=== PATIENT | female | born 1995 | race Caucasian/White ===

== ENCOUNTER 2021-09-08 03:56 | Emergency (ER) | payer MEDICAID, SELFPAY ==
[2021-09-08 04:04] VITALS: BP 126/78; PULSE 90; RESP 16; TEMP 36.1; O2SAT 99
[2021-09-08] MEDS: diphenhydrAMINE 25 MG CAPSULE 50 MG PO (05:24)
--- NOTE | 2021-09-08 21:33 | ED.SKABFB ---
HPI - Skin/Abscess/Foreign Bdy General Chief complaint: Skin/Abscess/Foreign Body Stated complaint: Skin Rash Source: patient and RN notes reviewed History of Present Illness HPI narrative: 26-year-old woman presents with concern of rash that started early last week. Maybe Began in inner thighs or on her in her lower arms. Has been patchy and terribly itchy. She thinks maybe it started as a heat rash. 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 At home has no AC. No new exposures. No new medications. Has tried treatment with Vaseline calamine lotion. really all over she is feeling this. No sense of difficulty breathing or swallowing. No nausea. No abdominal cramping. no diarrhea. No chest pain. No shortness of breath. Related Data Home Medications Medication Instructions Recorded Confirmed bupropion HCl 300 mg 24 hr tablet, mg PO 09/08/21 extended release desogestrel 0.15 mg-ethinyl tab 09/08/21 estradiol 0.03 mg tablet (Apri) sertraline 100 mg tablet mg 09/08/21 trazodone 50 mg tablet mg 09/08/21 Review of Systems Status of ROS: Reports: 6 or more systems reviewed and unremarkable except as noted in History and below [facility] Medical History Acid reflux Anxiety Depression Social History Smoking Status: Smoker, status unknown Do you use any of these nicotine containing products: None Non-prescribed substance use: denies use Exam Narrative: Exam Narrative: pleasant. Clearly uncomfortable. Frequently scratching at her arms in particular. speaking easily. Cranial nerves 2-12 intact Skin is warm and dry. Diffuse areas of erythema scattered over good portions of her body particularly the extremities are also urticarial eruptions. Oropharynx is unremarkable. Lungs are clear cardiovascular a little elevated rate but regular rhythm, no MR G Abdomen is overweight soft nontender. Const: Vital Signs, click to edit/add: Vital Signs - 24 hr 09/08/21 04:04 Temperature 97 F L Pulse Rate [Right Pulse Oximeter] 90 Respiratory Rate 16 Blood Pressure [Ri ght Upper Arm] 126/78 Pulse Oximetry 99 Documenting provider has reviewed patient's vital signs: yes Course Course Hospital Course: is okay from a vitals standpoint here. Given time of night and that she does not have available diphenhydramine. Is given a 50 mg dose here to take once got home. Vital Signs Vital signs: Initial Vital Signs Temperature 97 F L 09/08/21 04:04 Temperature Source Temporal Artery Scan 09/08/21 04:04 Pulse Rate 90 09/08/21 04:04 Respiratory Rate 16 09/08/21 04:04 Blood Pressure 126/78 09/08/21 04:04 Blood Pressure Mean 94 09/08/21 04:04 Blood Pressure Position Supine 09/08/21 04:04 Pulse Oximetry 99 09/08/21 04:04 Oxygen Delivery Method 09/08/21 04:04 Vital Signs Temperature 97 F L 09/08/21 04:04 Pulse Rate 90 09/08/21 04:04 Respiratory Rate 16 09/08/21 04:04 Blood Pressure 126/78 09/08/21 04:04 Pulse Oximetry 99 09/08/21 04:04 Temperature 97 F L 09/08/21 04:04 Pulse Rate 90 09/08/21 04:04 Respiratory Rate 16 09/08/21 04:04 Blood Pressure 126/78 09/08/21 04:04 Pulse Oximetry 99 09/08/21 04:04 MDM - Skin/Abscess/Foreign Bdy MDM Narrative Medical decision making narrative: Urticarial rash of unclear etiology. Does not appear to be affecting airway oral prednisone prescribed from [facility]. Work note was also written. See discharge instructions Discharge Plan Discharge Clinical Impression: Urticaria Patient Disposition: Home, Self-Care Condition: Stable Additional Instructions: Hydrate. Can take diphenhydramine 25-50 mg per dose for breakthrough itch. Take prednisone as 40 mg now and 20 mg this early afternoon. Then go to 20 mg 2 times daily for 3 days. Yes I do think that higher heat exposure would exacerbate when you have got going on. Prescriptions: No Action desogestrel-ethinyl estradiol [Apri] 0.15-0.03 mg tablet 0RF Label Comments: TAKE 1 TABLET BY MOUTH EVERY DAY trazodone 50 mg tablet 0RF Label Comments: TAKE 1-2 TABLETS (50-100 MG) BY MOUTH AT BEDTIME IF NEEDED FOR SLEEP. sertraline 100 mg tablet 0RF Label Comments: TAKE 2 TABLETS BY MOUTH EVERY MORNING bupropion HCl 300 mg tablet extended release 24 hr PO 0RF Label Comments: TAKE 1 TABLET BY MOUTH EVERY DAY Follow Up/Referrals: Italia Bryant DO [Primary Care Provider] - Stand Alone Forms: [employer] Info Instructions
== END 2021-09-08 05:35 | disposition home or self-care (01) ==
PROVIDERS: Emergency Provider Family Medicine; PCP Family Medicine
DX: L50.9 Urticaria, unspecified (principal)
CPT/HCPCS: 99282; 99284; A9270

== ENCOUNTER 2023-03-02 23:27 | Emergency (ER) | payer MEDICAID, SELFPAY ==
[2023-03-02 23:39] VITALS: BP 123/80; PULSE 93; RESP 16; TEMP 36.6; O2SAT 96; BMI 35.5
--- NOTE | 2023-03-02 23:50 | ED_ITS ---
HPI - General Adult General Chief complaint: Cough Stated complaint: congestion, sore throat Time Seen by Provider: 03/02/23 23:49 Source: patient Mode of arrival: ambulatory Limitations: no limitations History of Present Illness HPI narrative: 27-year-old female presenting today with concerns about COVID-19. Patient has been ill for 6 days. She has been having congestion, runny nose and mild cough. No fevers or chills. Normal appetite. Sleeping well at night. Tested for COVID-19 at home and it was positive. Patient presents to the ER for confirmation. Related Data Home Medications Medication Instructions Recorded Confirmed bupropion HCl 300 mg 24 hr tablet, mg PO 09/08/21 extended release desogestrel 0.15 mg-ethinyl tab 09/08/21 estradiol 0.03 mg tablet (Apri) sertraline 100 mg tablet mg 09/08/21 trazodone 50 mg tablet mg 09/08/21 omeprazole 20 mg capsule,delayed 1 PO QAM 03/02/23 release Allergies Allergy/AdvReac Type Severity Reaction Status Date / Time No Known Drug Allergies Allergy Verified 03/02/23 23:38 Review of Systems Status of ROS: Reports: 10 or more systems reviewed and unremarkable except as noted in History and below [facility] Medical History Acid reflux ?K21.9 - Gastro-esophageal reflux disease without esophagitis (ICD-10) Anxiety ?F41.9 - Anxiety disorder, unspecified (ICD-10) Depression ?F32.A - Depression, unspecified (ICD-10) Social History Smoking Status: Smoker, status unknown Do you use any of these nicotine containing products: None Non-prescribed substance use: denies use Exam Narrative: Exam Narrative: Overweight, well-developed patient in no acute distress. Alert and oriented. Answers questions appropriately. Mood and affect are appropriate. Thoughts are goal oriented and rational. No tangential or magical thinking noted. Patient speaks in full sentences without needing to catch her breath. Patient does sound congested. HEENT: Normocephalic atraumatic. Pupils are equally round reactive to light. Extraocular muscles are intact. Conjunctivae are moist without any icterus noted. Moist mucous membranes. Cardiovascular: Heart is regular rate. Lungs: Clear to auscultation bilaterally. Skin: Well perfused without any obvious rashes. Const: Vital Signs, click to edit/add: Vital Signs - 24 hr 03/02/23 23:39 Temperature 97.9 F Pulse Rate [Pulse Oximeter] 93 Respiratory Rate 16 Blood Pressure [Ri ght Upper Arm] 123/80 Pulse Oximetry 96 Course Vital Signs Vital signs: Initial Vital Signs Temperature 97.9 F 03/02/23 23:39 Temperature Source Temporal Artery Scan 03/02/23 23:39 Pulse Rate 93 03/02/23 23:39 Respiratory Rate 16 03/02/23 23:39 Blood Pressure 123/80 03/02/23 23:39 Blood Pressure Mean 94 03/02/23 23:39 Blood Pressure Position Sitting 03/02/23 23:39 Pulse Oximetry 96 03/02/23 23:39 Vital Signs Temperature 97.9 F 03/02/23 23:39 Pulse Rate 93 03/02/23 23:39 Respiratory Rate 16 03/02/23 23:39 Blood Pressure 123/80 03/02/23 23:39 Pulse Oximetry 96 03/02/23 23:39 Temperature 97.9 F 03/02/23 23:39 Pulse Rate 93 03/02/23 23:39 Respiratory Rate 16 03/02/23 23:39 Blood Pressure 123/80 03/02/23 23:39 Pulse Oximetry 96 03/02/23 23:39 Medical Decision Making MDM Narrative Medical decision making narrative: 27-year-old female COVID-19. We discussed that home tests, when positive, are generally accurate. After having this discussion patient no longer wished to have a COVID-19 test done in the ED today. Did give her a work note as requested. Discussed symptomatic treatment. Given that she is on day 6 of her illness I do not recommend packs of it at this time. Patient understood. Discharge Plan Discharge Clinical Impression: COVID-19 Patient Disposition: Home, Self-Care Condition: Stable Additional Instructions: Since you still have symptoms, you should stay out of work for a full 10 days. This means you can return to work this Thursday. Rest as much as you need to, stay well-hydrated and eat nutritious meals. Prescriptions: No Action desogestrel-ethinyl estradiol [Apri] 0.15-0.03 mg tablet Patient Comments: TAKE 1 TABLET BY MOUTH EVERY DAY trazodone 50 mg tablet Patient Comments: TAKE 1-2 TABLETS (50-100 MG) BY MOUTH AT BEDTIME IF NEEDED FOR SLEEP. sertraline 100 mg tablet Patient Comments: TAKE 2 TABLETS BY MOUTH EVERY MORNING bupropion HCl 300 mg tablet extended release 24 hr PO Patient Comments: TAKE 1 TABLET BY MOUTH EVERY DAY omeprazole 20 mg capsule,delayed release(DR/EC) 1 PO QAM Follow Up/Referrals: Italia Bryant DO [Primary Care Provider] - Stand Alone [facility]
== END 2023-03-03 00:05 | disposition home or self-care (01) ==
LOC: ED 23:54
PROVIDERS: Emergency Provider Family Medicine; PCP Family Medicine
DX: U07.1 COVID-19 (principal)
CPT/HCPCS: 87631; 87651; 99282; 99283

== ENCOUNTER 2023-09-10 14:30 | Outpatient (RCR) | payer MEDICAID, OTHER, SELFPAY | END 2024-01-08 23:59 | disposition home or self-care (01) | PROVIDERS: PCP Family Medicine; Visit Provider Student in an Organized Health Care Education/Training Program | DX: M54.9 Dorsalgia, unspecified (principal); Z51.89 Encounter for other specified aftercare | CPT/HCPCS: 97110; 97140; 97162 ==

== ENCOUNTER 2024-08-09 15:05 | Emergency (ER) | payer OTHER, MEDICAID, SELFPAY ==
--- OUTSIDE RECORDS SUMMARY | 2024-08-09 15:06 | XMS_ITS | Clinical Summary ---
[facility] Address [address], [place] [address] Care Team Providers Care Fishing Tool Operator Name Role Phone Unassigned, Provider Primary Care Provider Unava ilable Source Comments You are receiving this document as you are listed as the primary care provider,follow-up provider, or the patient has been referred to you for consultation.This is in compliance with the Medicare andMedicaid EHR Incentive Program,which states Providers who transition their patient to another setting of careor provider of care or refers their patient to another provider of care shouldprovide summary care record for each transition of care or referral. [facility] Allergies No known active allergies Medications APRI 0.15-30 MG-MCG tablet 05/19/2019 Activ e sertraline (ZOLOFT) 100 MG tablet Take 100 mg by mouth daily. 04/27/2019 Active Social History Tobacco Use Types Packs/Day Years Used Date Smoking Tobacco: Never Comments No Sex and Gender Information Value Date Recorded Sex Assigned at Not on file Legal Sex Female 12:00 PM CDT Gender Identity Not on file Sexual Orientation Not on file Last Filed Vital Signs Vital Sign Reading Time Taken Comments Blood Pressure 114/78 11/17/2015 2:40 PM CDT Pulse 111 11/17/2015 2:40 PM CDT Temperature 37.2 C (98.9 F) 11/17/2015 2:40 PM CDT Respiratory Rate 18 11/17/2015 2:40 PM CDT Oxygen Saturation 96% 11/17/2015 2:40 PM CDT Inhaled Oxygen Concentration - - Weight 71.7 kg (158 lb) 11/17/2015 2:40 PM CDT Height - - Body Mass Index - - Plan of Treatment Health Maintenance Due Date Last Done Comments Cervical Cancer Screening Due 1993 Hep C Screening (Preventive Services) 1993 HIV Screening (Preventive Services) 2009 Adult Preventive Visit 05/24/2011 HepB Vaccine (1) 2012 COVID-19 Vaccine (1 - 2023-2 5 season) 2023 Influenza Vaccine (Season Ended) 2024 DTaP/Tdap/Td Vaccine (3 - Tdap) 03/12/2025 03/12/2015, 10/09/2005 Zoster/Shingles Vaccine (1 o f 2) 05/24/2043 MCV4 Vaccine Aged Out 03/12/2015 No longer eligi ble based on patient's age to complete this topic HPV Vaccine Aged Out No longer eligi ble based on patient's age to complete this topic HepA Vaccine Aged Out No longer eligi ble based on patient's age to complete this topic Hib Vaccine Aged Out No longer eligi ble based on patient's age to complete this topic IPV (Polio) Vaccine Aged Out No longe r eligible based on patient's age to complete this topic Meningococcal B Vaccine Aged Out No l onger eligible based on patient's age to complete this topic Pneumococcal Vaccine Aged Out No long er eligible based on patient's age to complete this topic Insurance [facility] OUT OF STATE Care Teams Fishing Tool Operator Relationship Specialty Start Date End Date Unassigned, Provider [address] [place] [address] PCP - General 01/01/00
--- OUTSIDE RECORDS SUMMARY | 2024-08-09 15:06 | XMS_ITS | Clinical Summary ---
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 Gender Identity Not on file Sexual Orientation Not on file Last Filed Vital Signs Vital Sign Reading Time Taken Comments Blood Pressure 117/89 10/05/2018 12:39 AM CDT Pulse 71 10/05/2018 12:39 AM CDT Temperature 36.8 C (98.2 F) 10/04/2018 11:01 PM CDT Respiratory Rate 18 10/04/2018 11:01 PM CDT Oxygen Saturation 99% 10/05/2018 12:40 AM CDT Inhaled Oxygen Concentration - - Weight 84.4 kg (186 lb) 10/04/2018 11:01 PM CDT Height - - Body Mass Index - - Plan of Treatment Not on file Insurance [employer] Care Teams Children'S Attendant Relationship Specialty Start Date End Date [facility], [facility] [place] [address] [place], [place] [id number] PCP - General 10/05/18
--- OUTSIDE RECORDS SUMMARY | 2024-08-09 15:07 | XMS_ITS | Clinical Summary ---
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 30 Tablet 07/26/19 22 Active omeprazole 20 mg tabletIndications :Dyspepsia Take one tablet daily 30 minutes prior to breakfast. 90 Tablet 3 03/10/19 23 Active albuterol HFA (Ventolin HFA) 90 mcg/actuation inhalerIndication s:Subacute cough Inhale 1 Puff by mouth 4 times daily if needed for Shortness of Breath 1st choice. 1 Each 1 03/10/19 24 Active naproxen (NAPROSYN) 500 mg tabletIndications :Back pain without radiation Take 1 Tablet (500 mg) by mouth two times daily. 28 Tablet 06/22/19 24 Active cetirizine (ZYRTEC) 10 mg tabletIndications :Allergic rhinitis, unspecified seasonality, unspecified trigger Take 1 Tablet (10 mg) by mouth once daily. 90 Tablet 1 11/16/19 24 Active Metaxalone (Skelaxin) 800 mg tabletIndications :Muscle spasm of back Take 1 tablet at bedtime as needed for muscle spasm 30 Tablet 04/13/19 25 Active methylPREDNISolon e (Medrol, Aston,) 4 mg tabletIndications :Degeneration of intervertebral disc of lumbar region, unspecified whether pain present,Chronic midline low back pain without sciatica Take by mouth as instructed per packaging. 21 Tablet 04/13/19 25 Active buPROPion 100 mg Sustained-Release tabletIndications :Depression, major, single episode, moderate (HC) Take 1 Tablet (100 mg) by mouth two times daily. 180 Tablet 1 06/18/19 25 Active escitalopram oxalate 20 mg tabletIndications :Depression, major, single episode, moderate (HC),Generalized anxiety disorder Take 1 Tablet (20 mg) by mouth once daily in the morning. 100 Tablet 1 06/18/19 25 Active traZODone 100 mg tabletIndications :Insomnia, unspecified type Take 1 Tablet (100 mg) by mouth at bedtime if needed for Sleep. 100 Tablet 1 06/18/19 25 Active cholecalciferol (Vitamin D3) (Vitamin D-3) 5,000 unit tab tabletIndications :Vitamin D deficiency Take 1 Tablet (5,000 units) by mouth once daily. 90 Tablet 1 06/18/19 25 Active cyanocobalamin (Vitamin B-12) 1,000 mcg tabletIndications :Vitamin B12 deficiency Take 1 Tablet (1,000 mcg) by mouth once daily. 90 Tablet 1 06/18/19 25 Active desogestrel-ethin yl estradiol 0.15-30 mg-mcg (Apri) tabletIndications : control counseling TAKE 1 TABLET BY MOUTH EVERY DAY 84 Tablet 2 08/02/19 25 Active desogestrel-ethin yl estradiol 0.15-30 mg-mcg (Apri) tabletIndications : control counseling Take 1 Tablet by mouth once daily. 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 05/29/2021 Insomnia 05/29/2021 Myopia of both eyes 04/03/2016 Borderline personality disorder 01/07/2016 Anxiety state, unspecified 03/02/2013 Irritable bowel 02/17/2013 Sleep disorder 02/03/2013 Weight loss 02/03/2013 Headache 02/03/2013 ENURESIS, NOCTURNAL 05/20/1999 DISORDER, 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 Resolved Problems Problem Noted Date Diagnosed Date Resolved Date Depression with anxiety 02/03/201303/2013 Encounters Date Type Department Care Team Description 08/09/2024 [place] T[place] [facility] [address] [place] [address] Italia Bryant DO Head Injury 07/31/2024 Refill [facility] [address] [place] [address] Betsey Yuan MD Refill Request (Apri) 06/17/2024 1:25 PM CDT Office [place] [facility] [address] [place] [address] Italia Bryant DO Medication Management (follow up - refills needed) 06/17/2024 Travel from Last 3 Months Immunizations Immunization Administration Dates Next Due DTP 05/26/1995, 4,1993,07/16 DTaP 10/09/2005,11/15/1997 HIB PRP-OMP (PedvaxHIB) 1993,1993, Hepatitis B (Peds) 01/07/1994,1993, 994 MENINGOCOCCAL VACCINE 2 VIAL 2MO-55YO (MENVEO) 03/12/2015 MMR 11/15/1997,09/29/1994 Oral Polio Vaccine 11/15/1997, 6,1993,07/16 Tdap 03/12/2015 Tuberculin (PPD) 03/12/2015 Family History Medical History Relation Name Comments Psychiatric illness Brother 2 undiagno sed Cancer Maternal Grandfather brain c ancer Cancer Paternal Grandmother lung ca ncer Relation Name Status Comments Brother 1 Alive Brother 2 Father Alive Maternal Grandfather Alive Maternal Grandmother Alive Mother Alive Paternal Grandmother lung ca ncer Social History Tobacco Use Types Packs/Day Years Used Date Smoking Tobacco: Never Smokeless Tobacco: Never Tobacco Cessation:Counseling Given: Yes Alcohol Use Standard Drinks/Week Comments Not Currently 0 (1 standard drink = 0.6 oz pur e alcohol) occasional PHQ-2 Answer Date Recorded PHQ-2 TOTAL SCORE 4 06/17/2024 Social Connections Answer Date Recorded Do you often feel lonely or isolated from those around you? 0 04/13/2024 Financial Resource Strain Answer Date R ecorded Difficulty of Paying Living Expenses 1 04/13/2024 Difficulty of Paying Living Expenses 2 04/13/2024 Food Insecurity Answer Date Recorded Do you worry your food will run out before you are able to buy more? 2 04/13/2024 Transportation Needs Answer Date Record ed Does lack of transportation keep you from medica l appointments? 1 04/13/2024 Does lack of transportation keep you from work, meetings or getting things that you need? 1 04/13/2024 Housing Stability Answer Date Recorded What is your housing situation today? 1 04/13/2024 Utilities Answer Date Recorded Do you have trouble paying f or utilities (for example, heat, electricity, water, phone)? 2 04/13/2024 Comments No Sex and Gender Information Value Date Recorded Sex Assigned at Not on file Legal Sex Female 5:26 AM TUG BOAT CAPTAIN Gender Identity Not on file Sexual Orientation Not on file Occupation Industry Job Start Date Job End Date Not on file Not on file Not on file Not on file Obstetrics History Last Filed Vital Signs Vital Sign Reading Time Taken Comments Blood Pressure 108/82 06/17/2024 1:34 PM CDT Pulse 104 06/17/2024 1:34 PM CDT Temperature 36.7 C (98.1 F) 06/26/2023 3:08 PM CDT Respiratory Rate 16 05/21/2015 11:1 5 AM CDT Oxygen Saturation 97% 06/17/2024 1:34 PM CDT Inhaled Oxygen Concentration - - Weight 115.1 kg (253 lb 12.8 oz) 06/17/2024 1:34 PM CDT Height 167.6 cm (5' 6) 04/13/2024 9:51 AM TUG BOAT CAPTAIN Body Mass Index 40.96 04/13/2024 9:51 AM TUG BOAT CAPTAIN Plan of Treatment Health Maintenance Due Date Last Done Comments COVID-19 vaccine series ( season) 2023 Pap test for age 21-65 06/25/2024 , 06/26/2023, 03/10/2022, Additional history exists Influenza Vaccine (Season Ended) 2024 Tetanus booster 03/12/2025 03/12/2015 BMI (ht and wt on same day) for age 18+ 04/13/2025 04/13/2024, 06/26/2023, 06/22/2023, Additional history exists Depression screening for age 12+ 06/17/2025 06/17/2024, 06/26/2023, 06/30/2022, Additional history exists Hepatitis B series for 19+ Completed 01/07, 1993, 1993 Tdap Completed 03/12/2015 HIV for age 15-65 Completed 03/10/2022, , 12/10/2011 Hepatitis C screening for age 18-79 Completed 03/10/2022, 08/30/2018 Pneumococcal series for age 6-49 Aged Out No longer eligible based on patient's age to complete this topic Procedures Procedure Name Priority Date/Time Associated Diagnosis Comments CONSTRUCTION LABORER THIN PREP PAP SCREEN IMAGED Routine 06/26/2023 3:30 PM CDT Cervical cancer screening LC HIV-1/O/2, 4TH GENERATION Routine 03/10/2022 1:53 PM TUG BOAT CAPTAIN Exposure to potentially hazardous body fluids LC HCV ANTIBODY RFX TO QUANT PCR Routine 03/10/2022 1:53 PM TUG BOAT CAPTAIN Exposure to potentially hazardous body fluids from Last 3 Months or Most Recently Relevant to Health Maintenance Results * (ABNORMAL) CONSTRUCTION LABORER THIN PREP PAP SCREEN IMAGED (06/26/2023 3:30 PM CDT) Case Report Gynecologic Cytology Report Case: [id number] Authorizing Provider: Betsey Yuan Collected: 06/26/2023 1530 MD Yue Ordering Location: [facility] Received: 06/26/2023 1633 Clinic First Screen: Troy Still Pathologist: Pura Tinoco MD Specimen: CONSTRUCTION LABORER ThinPrep Vial Screening, Cervical 07/08/2023 3:57 PM CDT [facility] INTERPRETATION/ RESULT ATYPICAL SQUAMOUS CELLS OF UNDETERMINED SIGNIFICANCE (ASCUS)(A) (none) 07/08/2023 3:57 PM CDT [facility] ENTR[facility] LABOR[facility]ORY at 1557 CDT SPECIMEN ADEQUACY Satisfactory for evaluation Endocervical component present 07/08/2023 3:57 PM CDT [facility] EN[facility] LAB[facility] HPV REQUEST HPV and PAP 07/08/2023 3:57 PM CDT [facility] Date of LMP 05/1707/08/2023 3:57 PM CDT [facility] Last Pap Date 03/10/22 07/08/2023 3:57 PM CDT [facility] Last Pap Result ASCUS 3:57 PM CDT [facility] Abnormal Pap or [place] Bx in last 5 years Yes 07/08/2023 3:57 PM CDT [facility] Menstrual Status Regular Periods 07/08/2023 3:57 PM CDT [facility] ENTR[facility] LAB[facility] [place] Bx Done Today No 07/08/2023 3:57 PM CDT [facility] Additional Information None given 07/08/2023 3:57 PM CDT [facility] Comment: Cytology is screened at [facility] - [address] [facility] [address] [address] and [facility] - [address] [place] [address], [place] [address] and [facility] - [address], [place] [address] Interpreted at [facility] - [address], [place] [address] Automated Review Successful 07/08/2023 3:57 PM CDT [facility] Comment:Specimen processed s uccessfully by automated athletic events scorer device, AnturisPrep Imaging System, [employer] ANCILLARY TESTING CONSTRUCTION LABORER HPV Ordered, Please see separate report 07/08/2023 3:57 PM CDT [facility] Note The pap test is a screening technique, not a diagnostic procedure. It is used primarily to screen for squamous cancers and precursor lesions. Published studies have shown that it is subject to both false negative and false positive results. The pap test should not be used as the sole means to diagnose or exclude pre-malignant and malignant lesions. 07/08/2023 3:57 PM CDT [facility] Other (Cervical) Non-Blood / Unknown 06/26/2023 3:30 PM CDT 06/26/2023 4:33 PM CDT Betsey Yuan MD PATHOLOGY/CYTOLOGY Final Result [facility] [address] [place] [address], [place] * LC HCV ANTIBODY RFX TO QUANT PCR (03/10/2022 1:53 PM TUG BOAT CAPTAIN) HCV Ab <0.1 0.0 - 0.9 s/co ratio 03/14/2022 4:07 AM TUG BOAT CAPTAIN [facility] Blood BLOOD SPECIMEN / Unknown Venipuncture / Unknown 03/10/2022 1:53 PM TUG BOAT CAPTAIN 03/10/2022 1:53 PM TUG BOAT CAPTAIN Narrative [facility] ([facility]) - 03/14/2022 4:07 AM TUG BOAT CAPTAIN Performed at: 01 - [facility] [id number] Orchestra Musician: Dean Durbin MD, Phone: [phone] Italia Bryant DO LABORATORY Final Resul t Performing Organization Address City/[facility] Co de Phone Number [facility] ([facility]) [address] [place] [address] * LC HIV-1/O/2, 4TH GENERATION (03/10/2022 1:53 PM TUG BOAT CAPTAIN) [facility] Signature HIV Scr 4th Gen Non Reactive Non Reactive 03/13/2022 2:08 PM TUG BOAT CAPTAIN [facility] ([facility]) Comment: HIV Negative HIV-1/HIV-2 antibodies and HIV-1 p24 antigen were NOT detected. There is no laboratory evidence of HIV infection. Blood BLOOD SPECIMEN / Unknown Venipuncture / Unknown 03/10/2022 1:53 PM TUG BOAT CAPTAIN 03/10/2022 1:53 PM TUG BOAT CAPTAIN Narrative [facility] ([facility]) - 03/13/2022 2:08 PM TUG BOAT CAPTAIN Performed at: [address] [place] [id number] Orchestra Musician: Dean Durbin MD, Phone: [phone] Italia Bryant DO LABORATORY Final Resul t Performing Organization Address [facility] Co de Phone Number [facility] ([facility]) [address] [place] [address] from Last 3 Months or Most Recently Relevant to Health Maintenance Insurance [employer] Care Teams Drivematic Machine Operator Relationship Specialty [place] [address] [place], [place] [id number] PCP - General Family Practice 05/12/13
[2024-08-09 15:24] VITALS: BP 118/85; PULSE 118; RESP 18; TEMP 36.3; O2SAT 98; BMI 40.4
--- NOTE | 2024-08-09 15:37 | ED.GENADULT ---
HPI - General Adult General Chief complaint: Head Injury/Pain Stated complaint: Head injury Time Seen by Provider: 08/09/24 15:29 History of Present Illness HPI narrative: patient had slipped and fell hitting the right side of the upper head. has a bump on that side and denies LOC. c/o WARD on the right side of forehead and some radiation across the forehead. vision is off having off balance, eyes sensitive to light, disorienting and needing to focus. went to [facility] with concussion. no vomiting has been resting at home and not doing anything. 29-year-old woman presenting to the emergency department with concern of head injury. Apparently was at work and on a slippery floor fell forward striking the right side of her head on a concrete wall. She does have a headache in his area. She feels a little off balance. Photophobia. Some disorientation. Was diagnosed ultimately with a concussion on follow-up in urgent care. Some neck discomfort. No back pain. This injury occurred 4 or 5 days ago. Related Data Home Medications ?Medication ?Instructions ?Recorded ?Confirmed bupropion HCl 300 mg 24 hr tablet, 200 mg PO DAILY 09/08/21 08/09/24 extended release desogestrel 0.15 mg-ethinyl 1 tab PO DAILY 09/08/21 08/09/24 estradiol 0.03 mg tablet (Apri) sertraline 100 mg tablet 100 mg PO Q24H 09/08/21 08/09/24 trazodone 50 mg tablet 100 mg PO HS 09/08/21 08/09/24 omeprazole 20 mg capsule,delayed 20 mg PO QAM 03/02/23 08/09/24 release Allergies Allergy/AdvReac Type Severity Reaction Status Date / Time No Known Drug Allergies Allergy Verified 08/09/24 15:34 Review of Systems Status of ROS: Reports: 6 or more systems reviewed and unremarkable except as noted in History and below [facility] Medical History Acid reflux ?K21.9 - Gastro-esophageal reflux disease without esophagitis (ICD-10) Anxiety ?F41.9 - Anxiety disorder, unspecified (ICD-10) Depression ?F32.A - Depression, unspecified (ICD-10) Social History Smoking Status: Smoker, status unknown Do you use any of these nicotine containing products: None Second hand tobacco smoke exposure: No How often do you have a drink containing alcohol: never AUDIT-C Alcohol total score: 0 Non-prescribed substance use: denies use service: No Exam Narrative: Exam Narrative: Pleasant. NAD. Skin is warm and dry. Cranial nerves 2-12 are intact. She does demonstrate photophobia. Pupils are 3 mm and equal. Briskly reactive. Does seem just generally uncomfortable. Neck is supple. No midline neck or back tenderness. She sore to palpation in the right paracervical musculature. Heart in mild elevated rate and regular rhythm. Moving extremities fluidly. Normal [id number] Const: Vital Signs, click to edit/add: Vital Signs - 24 hr 08/09/24 15:24 Temperature 97.3 F L Pulse Rate [Pulse Oximeter] 118 H Respiratory Rate 18 Blood Pressure [Ri ght Upper Arm] 118/85 Pulse Oximetry 98 Oxygen Delivery Me thod Room Air Documenting provider has reviewed patient's vital signs: yes Course Vital Signs Vital signs: Initial Vital Signs Temperature 97.3 F L 08/09/24 15:24 Temperature Source Temporal Artery Scan 08/09/24 15:24 Pulse Rate 118 H 08/09/24 15:24 Respiratory Rate 18 08/09/24 15:24 Blood Pressure 118/85 08/09/24 15:24 Blood Pressure Mean 96 08/09/24 15:24 Blood Pressure Position Sitting 08/09/24 15:24 Pulse Oximetry 98 08/09/24 15:24 Oxygen Delivery Method Room Air 08/09/24 15:24 Vital Signs Temperature 97.3 F L 08/09/24 15:24 Pulse Rate 118 H 08/09/24 15:24 Respiratory Rate 18 08/09/24 15:24 Blood Pressure 118/85 08/09/24 15:24 Pulse Oximetry 98 08/09/24 15:24 Oxygen Delivery Method Room Air 08/09/24 15:24 Temperature 97.3 F L 08/09/24 15:24 Pulse Rate 96 08/09/24 17:07 Respiratory Rate 16 08/09/24 17:07 Blood Pressure 133/86 08/09/24 17:07 Pulse Oximetry 98 08/09/24 15:24 Oxygen Delivery Method Room Air 08/09/24 15:24 Medical Decision Making MDM Narrative Medical decision making narrative: I would agree with diagnosis of concussion. I do not think there are any red flags here otherwise requiring head imaging but it did offer that if wants to proceed with it. I do not think needs neck imaging either. I would however recommend close follow-up should concussive symptoms continue. [facility] decided not to proceed with imaging. Also declined any treatment for headache otherwise. Declined soft collar. Work note written. See patient discharge plan for further discussion Stay well-hydrated. Try to get quality and regular sleep. Take up to 600 mg of ibuprofen or up to 1000 mg of acetaminophen per dose. This can be combined. Alternative to the ibuprofen might be up to 325 mg naproxen 2 times daily. Would message your primary care provider to be evaluated/treated for concussion with physical therapy/concussion specialist. Return for marked increase in severity of headache, repeated vomiting, discoordination, new weakness. See handout for stretches for upper back that might be helpful for you. Writing you a work note. Discharge Plan Discharge Clinical Impression: Concussion, Closed head injury, Neck muscle strain Patient Disposition: Home w/ Parent or Adult Condition: Stable Additional Instructions: Stay well-hydrated. Try to get quality and regular sleep. Take up to 600 mg of ibuprofen or up to 1000 mg of acetaminophen per dose. This can be combined. Alternative to the ibuprofen might be up to 325 mg naproxen 2 times daily. Would message your primary care provider to be evaluated/treated for concussion with physical therapy/concussion specialist. Return for marked increase in severity of headache, repeated vomiting, discoordination, new weakness. See handout for stretches for upper back that might be helpful for you. Writing you a work note. Prescriptions: No Action desogestrel-ethinyl estradiol [Apri] 0.15-0.03 mg tablet 1 tab PO DAILY Patient Comments: TAKE 1 TABLET BY MOUTH EVERY DAY trazodone 50 mg tablet 100 mg PO HS Patient Comments: TAKE 1-2 TABLETS (50-100 MG) BY MOUTH AT BEDTIME IF NEEDED FOR SLEEP. sertraline 100 mg tablet 100 mg PO Q24H Patient Comments: TAKE 2 TABLETS BY MOUTH EVERY MORNING bupropion HCl 300 mg tablet extended release 24 hr 200 mg PO DAILY Patient Comments: TAKE 1 TABLET BY MOUTH EVERY DAY omeprazole 20 mg capsule,delayed release(DR/EC) 20 mg PO QAM Follow Up/Referrals: Italia Bryant DO [Primary Care Provider, Family Practice] Stand Alone Forms: MyHealth Info Instructions
[2024-08-09 17:07] VITALS: BP 133/86; PULSE 96; RESP 16
== END 2024-08-09 16:44 | disposition home or self-care (01) ==
LOC: ED 16:37
PROVIDERS: Emergency Provider Family Medicine; PCP Family Medicine
DX: S06.0X0A Concussion without loss of consciousness, initial encounter (principal); S16.1XXA Strain of muscle, fascia and tendon at neck level, initial encounter; W18.30XA Fall on same level, unspecified, initial encounter; Y99.0 Civilian activity done for income or pay
CPT/HCPCS: 99282; 99283; 99284